=== PATIENT | female | born 1990 | race Caucasian/White ===

== ENCOUNTER 2021-12-15 10:23 | Emergency (ER) | payer SELFPAY ==
[2021-12-15 11:24] LABS: HEMOGLOBIN 13.8 gm/dl (12.3-15.3); RED BLOOD COUNT 4.18 M/UL (4.00-5.10); WHITE BLOOD COUNT 6.5 K/UL (4.5-11.0)
[2021-12-15 11:42] LABS: BUN/CREATININE RATIO 16 (0-10)
== END 2021-12-15 16:10 | disposition home or self-care (01) ==
LOC: ER1 10:23
PROVIDERS: Physician Assistant
DX: N83.201 Unspecified ovarian cyst, right side (principal)
CPT/HCPCS: 76830; 80053; 81001; 83690; 84703; 85025; 96361; 96374; 96375; 99284; J1885; J2550; J7120; Q9967